=== PATIENT | female | born 1970 | race Caucasian/White ===

== ENCOUNTER → 2016-10-26 | Outpatient (CLI) | payer BC ==
[~2016-10-26] MED LIST: ASCO500T16 PO; CHOL1000 PO; CLR10 PO; FERR325T5 PO; MONT1TAB3 PO; POTA99TA PO; PRT/20 PO; RANI300T2 PO
--- NOTE | 2016-10-26 11:45 | DIAGNOSTIC IMAGING REPORT ---
TWO VIEW CHEST CLINICAL HISTORY: Chronic cough. FINDINGS: PA and lateral chest radiographs are obtained. No prior studies are available for comparison at the time of dictation. The cardiomediastinal silhouette is unremarkable. The lungs and pleural spaces are clear. There is no pneumothorax. The bony thorax appears intact. IMPRESSION: No active disease in the chest. Electronically signed by: Austin White M.D. 10/26/2016 11:44 AM Dictated Date/Time: 10/26/2016 11:44 AM
== END | disposition home or self-care (01) ==
LOC: C.RAD1850 11:31
PROVIDERS: ATTEND Nurse Practitioner Family
DX: R06.02 Shortness of breath (principal); R05 Cough; Z77.22 Contact with and (suspected) exposure to environmental tobacco smoke (acute) (chronic)

== ENCOUNTER 2016-10-27 07:34 | Inpatient (IN) | payer BC ==
[2016-10-27] VITALS (22 sets, daily range): BP systolic 125–156; BP diastolic 77–96; PULSE 71–91; TEMP 36.4–37.1; O2SAT 93–100; Ht 167.6 cm; Wt 97.9 kg
[~2016-10-27] VITALS: Ht 167.6 cm; Wt 97.9 kg
[2016-10-27] MEDS ORDERED: SODIUM CHLORIDE 0.9% 1000ML 1,000 ML IV STA (08:07)
[2016-10-27 08:47] LABS: PARTIAL THROMBOPLASTIN RATIO 0.9; PROTHROMBIN TIME (PATIENT) 10.6 SECONDS (9.0-12.0)
[2016-10-27 08:55] LABS: HEMATOCRIT 18.5 % (37-47); MEAN CELL VOLUME 64.5 fL (80-100); MEAN CORPUSCULAR HEMOGLOBIN 17.1 pg (25-34); MEAN CORPUSCULAR HGB CONC 26.5 g/dl (32-36); MEAN PLATELET VOLUME 9.2 fL (7.4-10.4); PLATELET COUNT 589 K/uL (130-400); RED BLOOD COUNT 2.87 M/uL (4.2-5.4); WHITE BLOOD COUNT 8.68 K/uL (4.8-10.8)
[2016-10-27 09:02] LABS: ALT/SGPT 16 U/L (12-78); BLOOD UREA NITROGEN 19 mg/dl (7-18); BUN/CREATININE RATIO 19.9 (10-20); CALCIUM 8.4 mg/dl (8.5-10.1); CARBON DIOXIDE 22 mmol/L (21-32); CHLORIDE 109 mmol/L (98-107); CREATININE 0.94 mg/dl (0.60-1.20); GLUCOSE 81 mg/dl (70-99); SODIUM 141 mmol/L (136-145)
[2016-10-27 09:04] LABS: URINE APPEARANCE CLEAR (CLEAR); URINE BILIRUBIN NEG (NEG); URINE COLOR YELLOW; URINE NITRITE NEG (NEG); URINE SPECIFIC GRAVITY 1.019 (1.000-1.030); UROBILINOGEN NEG (NEG)
[2016-10-27 09:05] LABS: ANISOCYTOSIS PRESENT; BASO ABS # 0.17 K/uL (0-0.2); COMPLETE YES; EOS % 4.1 %; HYPOCHROMIA PRESENT; IG% 0.1 %; LYMPH % 25.7 %; LYMPH ABS # 2.23 K/uL (1.2-3.4); MICROCYTOSIS PRESENT; MONO % 6.8 %; NEUT % 61.3 %
[2016-10-27 09:05] LABS: MANUAL MICROSCOPIC REQUIRED? NO; REVIEW REQ? NO
[2016-10-27 09:07] LABS: ALKALINE PHOSPHATASE 46 U/L (45-117); AST/SGOT 12 U/L (15-37)
[2016-10-27] MEDS ORDERED: MONT1TAB3 PO ×2 (09:14)
[2016-10-27] MEDS ORDERED: RANI300T2 PO ×2 (09:14)
[2016-10-27] MEDS ORDERED: PRT/20 PO ×2 (09:14)
[2016-10-27] MEDS ORDERED: ASCO500T16 PO ×2 (09:14)
[2016-10-27] MEDS ORDERED: CHOL1000 PO ×2 (09:14)
[2016-10-27] MEDS ORDERED: CLR10 PO ×2 (09:14)
[2016-10-27] MEDS ORDERED: POTA99TA PO ×2 (09:14)
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
[2016-10-27] MEDS ORDERED: MAGNESIUM HYDROXIDE SUSP 30 ML UDC PO PRN (11:15)
[2016-10-27] MEDS ORDERED: ACETAMINOPHEN 325 MG TAB PO PRN (11:15)
[2016-10-27] MEDS ORDERED: POLYETHYLENE (MIRALAX) 17 GM PACK PO PRN (11:15)
[2016-10-27] MEDS ORDERED: ZOLPIDEM TARTRATE 5 MG TAB PO PRN (11:15)
[2016-10-27] MEDS ORDERED: ALUMINUM/MAGNESIUM/SIMETH (MAALOX MAX) 30 ML UDC PO PRN (11:15)
--- NOTE | 2016-10-27 11:16 | DIAGNOSTIC IMAGING REPORT ---
PELVIC ULTRASOUND CLINICAL HISTORY: HEAVY MENSES, ANEMIA COMPARISON STUDY: None. TECHNIQUE: Transabdominal and transvaginal sonography of the pelvis was performed. FINDINGS: The uterus is enlarged and contains multiple hypoechoic masses suggestive of fibroids. The uterus measures 11.2 x 4.7 x 9.6 cm. The endometrium is difficult to visualize on this exam. No normal-appearing endometrium is noted. The endometrium may be thickened. The endometrium may measure 2.8 cm in thickness. Numerous suspected fibroids are noted, the largest of which is a pedunculated fibroid arising from the left aspect of the uterus measuring 6 x 4 x 5.7 cm. A right fundal fibroid measures 5.3 x 2.6 x 5.1 cm and a left uterine body fibroid measures 4 x 3.3 x 3.5 cm. The right ovary was not visualized. There was no free fluid. The left ovary measured approximately 4.4 x 1.8 x 3.7 cm and contained a 4.4 x 1.3 x 3.1 cm cyst. IMPRESSION: 1. Enlarged uterus containing numerous masses suggestive of fibroids, the largest of which is a 6 cm pedunculated fibroid arising from the left uterine fundus. 2. Suboptimal evaluation of the endometrium which is distorted on this exam. Apparent endometrial thickening although a polyp or submucosal fibroid could appear similar. 3. Nonvisualization of the right ovary. 4. 4.4 cm suspected left ovarian cyst. A follow-up pelvic ultrasound in 6 weeks to ensure resolution is recommended although this is likely benign. Electronically signed by: Chuy Vo M.D. 10/27/2016 11:15 AM Dictated Date/Time: 10/27/2016 11:08 AM
[2016-10-27 11:19] LABS: FERRITIN 1.1 ng/ml (8.0-388.0)
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
--- NOTE | 2016-10-27 15:56 | Medical Consult ---
Consultation Date of Consultation: Oct 27, 2016. Attending Physician: Harley Cruz MD Reason for Consultation: Heavy menses, severe anemia with hgb 4.9 History of Present Illness Patient is 45yo who presented to the ER at [facility] as directed by her PCP this morning. Over the past few months, pt had been feeling increasingly fatigued, weak, tired, and short of breath. She underwent CXR and blood work as ordered by PCP and H/H was 4.9/18.5 yesterday. 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 She notes, over the past few years , worsening periods lasting 14-16 days per month. She typically has about 2 weeks of bleeding followed by 2 weeks without, then bleeds again. She describes heavy bleeding, changing a tampon every 1.5-to-2 hours and passes large clots. She is currently menstruating, but flow is not very heavy today. Current period started 10/21/16. No history of abnormal pap, but has not had a pap in more than 8 years. H/o tubal ligation in 2000 or 2001. H/o vaginal delivery, uncomplicated, x 1. No h/ o sexually transmitted infections. 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 Took coumadin x 1 year, is not currently on any anticoagulant. Past Medical/Surgical History Medical Problems: (1) GERD (gastroesophageal reflux disease) Status: Chronic (2) Severe anemia Status: Acute Social History Smoking Status: Never Smoker Alcohol Use: occasionally Drug Use: none Marital Status: in relationship (Has court date for finalization of divorce on Sunday. Boyfriend is at bedside.) Occupation Status: employed Allergies Coded Allergies: Morphine (Unverified Allergy, Severe, HEART RACES, 10/27/16) Penicillins (Unverified Allergy, Severe, "PUFFY EYES", 10/27/16) Current Inpatient Medications Current Inpatient Medications Medications (Trade) Dose Ordered Sig/Freeman Route Start Time Stop Time Status Last Admin Dose Admin Cholecalciferol (Vitamin D Tab) 1,000 inter.unit DAILY PO 10/28/16 09:00 11/27/16 08:59 Montelukast Sodium (Singulair Tab) 10 mg QAM PO 10/28/16 09:00 8/28/17 08:59 Pantoprazole Sodium (Protonix Tab) 40 mg QAM PO 10/28/16 09:00 11/27/16 08:59 Ranitidine HCl (zANTac TAB) 300 mg HS PO 10/27/16 21:00 11/26/16 20:59 Acetaminophen (Tylenol Tab) 650 mg Q4H PRN PO 10/27/16 11:15 11/26/16 11:14 Al Hydrox/Mg Hydrox/Simethicone (Maalox Max Susp) 15 ml Q4H PRN PO 10/27/16 11:15 11/26/16 11:14 Magnesium Hydroxide (Milk Of Magnesia Susp) 30 ml Q12H PRN PO 10/27/16 11:15 11/26/16 11:14 Zolpidem Tartrate (Ambien Tab) 5 mg HSZ PRN PO 10/27/16 11:15 11/26/16 11:14 Polyethylene (Miralax Powder Packet) 17 gm DAILY PRN PO 10/27/16 11:15 11/26/16 11:14 Review of Systems Constitutional: + weakness, + fatigue Eyes: No problem reported ENT: No problem reported Respiratory: No problem reported Cardiovascular: No problem reported Abdomen: No pain, No nausea, No vomiting, No diarrhea, No constipation, No GI bleeding Musculoskeletal: No problem reported Genitourinary - Female: + menorrhagia, + metrorrhagia, + vaginal bleeding Neurologic: No problem reported Psychiatric: No problem reported Endocrine: No problem reported Hematologic / Lymphatic: No problem reported Integumentary: No problem reported Allergic / Immunologic: No problem reported Physical Exam Date Time Temp Pulse Resp B/P (MAP) Pulse Ox O2 Delivery O2 Flow Rate FiO2 10/27/16 13:41 37.0 75 17 134/77 98 10/27/16 13:30 37.0 83 16 137/95 100 10/27/16 13:30 37.0 79 16 138/77 99 10/27/16 13:15 37.0 81 18 140/82 99 10/27/16 13:15 37.0 79 16 138/77 99 10/27/16 13:10 10/27/16 13:00 37.0 71 17 139/86 100 10/27/16 12:45 37.0 75 20 145/84 100 10/27/16 12:23 68 10/27/16 12:15 37.0 76 20 146/89 100 10/27/16 12:15 37.0 76 20 156/91 100 10/27/16 12:00 37.1 86 18 146/89 95 10/27/16 11:46 37.0 82 16 154/85 99 10/27/16 11:13 97 Room Air 10/27/16 11:09 84 16 151/78 97 Room Air 10/27/16 08:45 84 161/79 83 157/87 89 149/82 10/27/16 08:44 86 10/27/16 08:44 86 17 159/83 99 Room Air 10/27/16 08:44 99 Room Air 10/27/16 07:36 37.5 108 18 166/72 100 Room Air General Appearance: no apparent distress Head: normocephalic ENT: hearing grossly normal Neck: supple Respiratory/Chest: normal breath sounds Cardiovascular: regular rate, rhythm Abdomen/GI: non tender, soft, + pertinent finding (16-week uterus, firm, mobile ) Genitourinary - Female: external genitalia normal, normal cervix, + pertinent finding (16-week size uterus, cervix smooth but displaced slightly to left, can feel mass in posterior fornyx and right parametrial area. Scant blood on speculum exam. Tampon that had just been removed prior to exam was dry.) Back: normal inspection Extremities/Musculoskelatal: normal inspection Neurologic/Psych: alert, normal mood/affect, oriented x 3 Skin: + pallor Laboratory Results Last 24 Hours Test 10/27/16 08:24 10/27/16 08:50 10/27/16 15:28 White Blood Count 8.68 K/uL Red Blood Count 2.87 M/uL Hemoglobin 4.9 g/dL Hematocrit 18.5 % Mean Corpuscular Volume 64.5 fL Mean Corpuscular Hemoglobin 17.1 pg Mean Corpuscular Hemoglobin Concent 26.5 g/dl Platelet Count 589 K/uL Mean Platelet Volume 9.2 fL Neutrophils (%) (Auto) 61.3 % Lymphocytes (%) (Auto) 25.7 % Monocytes (%) (Auto) 6.8 % Eosinophils (%) (Auto) 4.1 % Basophils (%) (Auto) 2.0 % Neutrophils # (Auto) 5.32 K/uL Lymphocytes # (Auto) 2.23 K/uL Monocytes # (Auto) 0.59 K/uL Eosinophils # (Auto) 0.36 K/uL Basophils # (Auto) 0.17 K/uL RDW Standard Deviation 49.7 fL RDW Coefficient of Variation 21.2 % Immature Granulocyte % (Auto) 0.1 % Immature Granulocyte # (Auto) 0.01 K/uL Hypochromasia PRESENT Anisocytosis PRESENT Microcytosis PRESENT Absolute Reticulocyte Count 0.05 10^6/uL Percent Reticulocyte Count 1.9 % Prothrombin Time 10.6 SECONDS Prothromb Time International Ratio 1.0 Activated Partial Thromboplast Time 22.2 SECONDS Partial Thromboplastin Ratio 0.9 Sodium Level 141 mmol/L Potassium Level 4.0 mmol/L Chloride Level 109 mmol/L Carbon Dioxide Level 22 mmol/L Anion Gap 10.0 mmol/L Blood Urea Nitrogen 19 mg/dl Creatinine 0.94 mg/dl Est Creatinine Clear Calc Drug Dose 88.7 ml/min Estimated GFR () 84.3 Estimated GFR (Non- 72.8 BUN/Creatinine Ratio 19.9 Random Glucose 81 mg/dl Calcium Level 8.4 mg/dl Iron Level 12 mcg/dl Total Iron Binding Capacity 499 mcg/dl Ferritin 1.1 ng/ml Total Bilirubin 0.5 mg/dl Direct Bilirubin 0.1 mg/dl Aspartate Amino Transf (AST/SGOT) 12 U/L Alanine Aminotransferase (ALT/SGPT) 16 U/L Alkaline Phosphatase 46 U/L Troponin I < 0.015 ng/ml Total Protein 7.2 gm/dl Albumin 3.7 gm/dl Lipase 129 U/L Urine Color YELLOW Urine Appearance CLEAR Urine pH 5.0 Urine Specific [place] 1.019 Urine Protein NEG Urine Glucose (UA) NEG Urine Ketones NEG Urine Occult Blood NEG Urine Nitrite NEG Urine Bilirubin NEG Urine Urobilinogen NEG Urine Leukocyte Esterase SMALL Urine WBC (Auto) 1-5 /hpf Urine RBC (Auto) 0-4 /hpf Urine Hyaline Casts (Auto) 1-5 /lpf Urine Epithelial Cells (Auto) 10-20 /lpf Urine Bacteria (Auto) NEG Urine Test NEG Assessment & Plan 45yo with heavy prolonged menses and severe anemia Ultrasound shows multiple uterine fibroids and an endometrial thickness of 2.8cm. Suspect fibroids are contributing to patient's heavy menses, however, since lining appears to be thickened, will need to perform outpatient endometrial biopsy to rule out malignancy. Recommend stabilization with blood products, and upon discharge, patient will need to follow up as an outpatient with [facility] [place] within the next 1-2 weeks. At that time, will plan to perform endometrial biopsy and will base further plans upon results. Since patient is not experiencing active heavy bleeding, do not recommend hormonal treatment at this time - and if treatment does become necessary, would use aygestin or megace and NOT use any estrogen-containing medications due to her history of blood clot. I discussed this plan with patient, she is agreeable. Please call with further questions.
[2016-10-27 16:05] LABS: HEMATOCRIT 21.5 % (37-47)
[2016-10-27 18:49] LABS: HEMATOCRIT 24.9 % (37-47)
[2016-10-27] MEDS ORDERED: RANITIDINE HCL 150 MG TAB PO SCH (21:00)
[2016-10-28 00:37] VITALS: BP 143/89; PULSE 89; TEMP 36.9; O2SAT 97
[2016-10-28 01:35] VITALS: BP 149/93; PULSE 78; TEMP 36.8; O2SAT 97
[2016-10-28 02:42] VITALS: BP 155/92; PULSE 79; TEMP 36.7; O2SAT 96
[2016-10-28 03:34] LABS: BUN/CREATININE RATIO 20.8 (10-20); CALCIUM 8.5 mg/dl (8.5-10.1); CREATININE 0.75 mg/dl (0.60-1.20); MAGNESIUM 2.1 mg/dl (1.8-2.4)
[2016-10-28 03:37] LABS: ALB/GLOB RATIO 1.1 (0.9-2)
[2016-10-28 03:42] LABS: HEMATOCRIT 28.5 % (37-47); MEAN CELL VOLUME 72.3 fL (80-100); MEAN CORPUSCULAR HEMOGLOBIN 21.6 pg (25-34); MEAN CORPUSCULAR HGB CONC 29.8 g/dl (32-36); MEAN PLATELET VOLUME 9.5 fL (7.4-10.4); PLATELET COUNT 574 K/uL (130-400); RED BLOOD COUNT 3.94 M/uL (4.2-5.4); WHITE BLOOD COUNT 10.59 K/uL (4.8-10.8)
[2016-10-28 03:47] LABS: ANISOCYTOSIS PRESENT; BASO ABS # 0.11 K/uL (0-0.2); COMPLETE YES; EOS % 2.7 %; IG% 0.2 %; LYMPH % 33.9 %; LYMPH ABS # 3.59 K/uL (1.2-3.4); MONO % 10.3 %; NEUT % 51.9 %; OVALOCYTES 1+; POLYCHROMASIA 1+
[2016-10-28 04:02] VITALS: BP 142/78; PULSE 82; TEMP 36.7; O2SAT 95
[2016-10-28 07:01] VITALS: BP 129/93; PULSE 76; TEMP 37; O2SAT 99
[2016-10-28] MEDS ORDERED: MONTELUKAST SOD 10 MG TAB PO SCH (09:00)
[2016-10-28] MEDS ORDERED: PANTOprazole SOD 40 MG TAB PO SCH (09:00)
[2016-10-28] MEDS ORDERED: IRON SUCROSE INJ 100 MG in SODIUM CHLORIDE 0.9% 100ML 100 ML IV SCH (09:00)
[2016-10-28] MEDS ORDERED: CHOLECALCIFEROL 1000 INTER.UNIT TAB PO SCH (09:00)
[2016-10-28 10:13] LABS: HEMATOCRIT 28.1 % (37-47)
[2016-10-28] MEDS ORDERED: FERR325T5 PO ×2 (10:31)
--- NOTE | 2016-10-28 10:34 | Discharge Instructions ---
Discharge Instructions Date of Service Oct 28, 2016. Admission Reason for Admission: Severe Anemia Discharge Discharge Diagnosis / Problem: Acute blood loss anemia Discharge Goals Goal(s): Decrease discomfort, Improve function, Increase independence, Improve disease control, Learn about illness, Diagnostic testing, Therapeutic intervention, Prevent Disease Progression Activity Recommendations Activity Limitations: resume your previous activity Exercise/Sports Limitations: none Driving or Machine Use: no limitations . Instructions / Follow-Up Instructions / Follow-Up Patient to be discharged home Anemia likely from prolonged menses Will need to follow up with RN TRANSITIONAL in 1-2 weeks Iron levels also low, started on ferrous sulfate 325 mg, please take 1 tablet a day Please note can cause constipation and dark stools Please follow up with Rosemarie Zimmerman in 1-2 weeks Current Hospital Diet Patient's current hospital diet: Regular Diet Discharge Diet Recommended Diet: Regular Diet Pending Studies Studies pending at discharge: no Medical Emergencies . Who to Call and When: Medical Emergencies: If at any time you feel your situation is an emergency, please call 911 immediately. . Non-Emergent Contact Non-Emergency issues call your: Primary Care Provider Call Non-Emergent contact if: you have a fever, your pain is worsening . . "Provider Documentation" section prepared by Oscar Castañeda. . VTE Core Measure Inpt VTE Proph given/why not?: Contraindicated
[2016-10-28 10:38] VITALS: BP 129/93; PULSE 76; TEMP 37; O2SAT 99
--- NOTE | 2016-10-28 14:06 | Discharge Summary ---
Discharge Summary Date of Service Oct 28, 2016. 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 New Medications: Ferrous Sulfate (Ferrous Sulfate) 325 Mg Tab 325 MG PO DAILY, #30 TAB Continued Medications: Ascorbic Acid (Ascorbic Acid) 500 Mg Tab 500 MG PO DAILY Cholecalciferol (Vitamin D3) 1,000 Unit Tab 1 TAB PO DAILY Loratadine (Claritin) 10 Mg Tab 10 MG PO QAM Montelukast Sodium (Singulair) 10 Mg Tab 10 MG PO QAM Pantoprazole (Protonix) 20 Mg Tab 20 MG PO QAM Potassium (Potassium) 99 Mg Tab 1 TAB PO DAILY Ranitidine (Zantac) 300 Mg Tab 300 MG PO HS, TAB Discharge Exam Review of Systems: Constitutional: No fever, No chills, No sweats, No weight loss, No weakness Eyes: No worsening of vision, No eye pain, No redness, No discharge Respiratory: No cough, No sputum, No wheezing, No shortness of breath, No dyspnea on exertion Cardiovascular: No chest pain, No orthopnea, No PND, No edema, No claudication Abdomen: No pain, No nausea, No vomiting, No diarrhea Musculoskeletal: No joint pain, No muscle pain, No swelling, No calf pain Genitourinary - Female: No dysuria, No urinary frequency, No urinary urgency , No urinary incontinence, No dysmenorrhea, No menorrhagia, No metrorrhagia, No vaginal bleeding Neurologic: No memory loss, No paralysis, No weakness, No numbness/tingling , No vertigo Psychiatric: No depression symptoms, No anhedonism, No anxiety, No insomnia Endocrine: No fatigue, No excessive thirst, No excessive urination Integumentary: No rash, No itch Physical Exam: General Appearance: WD/WN, no apparent distress Eyes: normal inspection, PERRL, EOMI, sclerae normal Neck: supple, no adenopathy, thyroid normal, no JVD Respiratory/Chest: chest non-tender, lungs clear, normal breath sounds, no respiratory distress Cardiovascular: regular rate, rhythm, no edema, no gallop, no JVD Abdomen / GI: normal bowel sounds, non tender, soft, no organomegaly Neurologic/Psychiatric: alert, normal mood/affect, normal reflexes, oriented x 3 Hospital Course ASSESSMENT: Severe symptomatic iron deficiency anemia secondary to below. Chronic blood loss anemia secondary to below. Severe metrorrhagia, most likely secondary to below. Multiple uterine fibroids/left ovarian cyst/thickened endometrium. Gastroesophageal reflux disease/hiatal hernia. Allergic rhinitis. PLAN: Admit patient to telemetry. Hg initially 4.9. Was transfused a total of 4 units PRBCs during admission. Hg 8.2 on discharge. Pt denied any shortness of breath, chest pain or active bleeding. Iron levels were found to be low. Also discharged on ferrous sulfate 325 mg PO daily. Pelvic US did determine endometrial thickening and mult fibroids likely etiology of heavy prolonged menses. Will f/u with OB/ BOILER INSPECTOR for further evaluation. Total Time Spent: Greater than 30 minutes This includes examination of the patient, discharge planning, medication reconciliation, and communication with other providers. Discharge Instructions Please refer to the electronic Patient Visit Report (Discharge Instructions) for additional information. Additional Copies To Rosemarie Zimmerman
== END 2016-10-28 12:40 | disposition home or self-care (01) | DRG 812 ==
LOC: C.EDB 07:36 → C.2T 11:10 → ENRESERV 12:40
PROVIDERS: ADMIT Internal Medicine; ATTEND Hospitalist
DX: D50.0 Iron deficiency anemia secondary to blood loss (chronic) (principal); N93.8 Other specified abnormal uterine and vaginal bleeding; N92.1 Excessive and frequent menstruation with irregular cycle; D25.9 Leiomyoma of uterus, unspecified; K21.9 Gastro-esophageal reflux disease without esophagitis; Z86.711 Personal history of pulmonary embolism

== ENCOUNTER → 2016-11-06 | Outpatient (CLI) | payer BC | END | disposition home or self-care (01) | LOC: C.PAPS 14:35 | PROVIDERS: ATTEND Obstetrics & Gynecology | DX: N92.0 Excessive and frequent menstruation with regular cycle (principal) ==

== ENCOUNTER → 2016-11-06 | Outpatient (CLI) | payer BC | END | disposition home or self-care (01) | LOC: C.PATHSPEC 13:03 | PROVIDERS: ATTEND Obstetrics & Gynecology | DX: N92.0 Excessive and frequent menstruation with regular cycle (principal) ==

== ENCOUNTER 2024-04-29 22:18 | Observation (INO) ==
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
[2024-04-29] MEDS ORDERED: VANCOMYCIN CONSULT ACTIVE PRN (23:38)
[2024-04-29] MEDS: ACETAMINOPHEN 1,000 MG/100 ML VIAL IV STA (23:41)
[2024-04-29 23:45] LABS: Basophils # (auto) 0.01 K/uL (0.00-0.20); Basophils % (auto) 0.1 %; Eosinophils # (auto) 0.03 K/uL (0.00-0.50); Eosinophils % (auto) 0.2 %; Hematocrit (blood only) 41.5 % (37.0-47.0); Hemoglobin 14.1 g/dl (12.0-16.0); Immature Granulocytes # (auto) 0.03 K/uL (0.01-0.20); Immature Granulocytes % (auto) 0.2 %; Lymphocytes # (auto) 3.23 K/uL (1.20-3.40); Lymphocytes % (auto) 24.7 %; Mean Corpuscular Hemoglobin 29.6 pg (25.0-34.0); Monocytes # (auto) 1.12 K/uL (0.11-0.59); Monocytes % (auto) 8.5 %; Neutrophils # (auto) 8.68 K/uL (1.40-6.50); Neutrophils % (auto) 66.3 %; Platelet Count 315 K/uL (130-400); RDW Coefficient of Variation 12.5 % (11.5-14.5); RDW Standard Deviation 40.2 fL (36.4-46.3); Red Blood Count 4.77 M/uL (4.20-5.40)
[2024-04-30 00:02] LABS: Albumin Globulin Ratio 1.5 (0.9-2); Albumin Level 4.5 gm/dl (3.4-5.0); BUN Creatinine Ratio 24.7 (10-20); Bilirubin,Total 0.6 mg/dl (0.2-1.0); Calcium 9.1 mg/dl (8.6-10.3); Creatinine Clr Calc Pharmacy 105.3 ml/min; Potassium 3.5 mmol/L (3.5-5.1); Total Protein 7.5 gm/dl (6.0-8.3)
[2024-04-30] MEDS: cefTRIAXone SODIUM 2,000 MG/50 ML BAG IV STA (00:06)
--- NOTE | 2024-04-30 00:16 | Emergency Department Note ---
ED Visit Note Physician Evaluation Note: Patient was seen in conjunction with the midlevel provider. Please see the midlevel provider note for full details of the patient's visit. I have personally evaluated and examined this patient. Patient presented to the ED with pain in her right middle finger. Patient states she developed pain and swelling earlier in the day. Patient has had difficulty moving the finger secondary to the pain and swelling. Clinically, I do have concern on my exam for flexor tenosynovitis. Patient will be initiated on IV antibiotics and will plan for admission with orthopedic consultation for further evaluation in the morning. Patient was in agreement to this plan, please see physician chemist assistant note for full details of the patient's presentation. I agree with assessment and plan of Jammie Dominguez PA-C. Michael Henry DO .
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
--- NOTE | 2024-04-30 00:38 | XRay Report ---
Exam(s): XR RIGHT FINGER EXAM: XR Right Fingers, 3 Views CLINICAL HISTORY: Reason for exam: swollen. TECHNIQUE: Frontal, lateral and oblique views of the right third digit COMPARISON: No relevant prior studies available. FINDINGS: Bones/joints: No acute fracture. No dislocation. No gross bony destruction is seen. Soft tissues: There is soft tissue swelling.. No radiopaque foreign body. IMPRESSION: Soft tissue swelling. If further evaluation is clinically necessary, consider correlation with MRI. Electronically signed by: Lui Soria MD 04/30/24 00:37 AM
[2024-04-30 00:46] LABS: Magnesium 1.8 mg/dl (1.7-2.4)
[2024-04-30 01:27] LABS: Uric Acid 4.3 mg/dl (2.6-7.2)
[2024-04-30] MEDS: POTASSIUM CHLORIDE CRTAB 20 MEQ TABCR PO STA (01:28)
[2024-04-30] MEDS: KETOROLAC TROMETHAMINE 15 MG/ML VIAL IV ONE (01:28)
[2024-04-30] MEDS: VANCOMYCIN HCL 1,000 MG/270 ML BAG IV ONE (01:31)
[2024-04-30] MEDS ORDERED: ONDANSETRON INJ 2 MG/ML 2 ML VIAL IV PRN (02:39)
[2024-04-30] MEDS ORDERED: VANCOMYCIN CONSULT ACTIVE PRN (02:39)
[2024-04-30] MEDS ORDERED: MELATONIN 3 MG TAB PO PRN (02:39)
[2024-04-30] MEDS ORDERED: oxyCODONE HCL IR 5 MG TAB (IMMEDIATE RELEASE) PO PRN (02:39)
[2024-04-30] MEDS ORDERED: KETOROLAC TROMETHAMINE 15 MG/ML VIAL IM PRN (02:39)
--- NOTE | 2024-04-30 03:20 | Pharmacy Report ---
Pharmacy PK ABX Note - Date of Service April 30, 2024 - Assessment and Plan Assessment 53 year old F receiving ceftriaxone and vancomycin for treatment of cellulitis of the finger. XRay of finger shows soft tissue swelling. Ortho has been consulted for possible flexor tenosynovitis. * + influenza A--currently on oseltamivir * + leukocytosis and afebrile * Blood cultures x 2 obtained 04/29 are pending Day # 1 of antimicrobial therapy. Plan Vancomycin * Loading dose: 1000 mg IV x 1 in ED * Maintenance dose: 1250 mg IV every 12 hours * Regimen is predicted to achieve target AUC/JULIETTE of 400-600 mg/L.hr * Random level will be ordered as clinically necessary. Pharmacy will continue to follow and will adjust dose/frequency as necessary. Thank you. Pharmacy has transitioned to AUC monitoring for vancomycin. AUC/JULIETTE is the preferred PK/PD target and is associated with decreased risk of nephrotoxicity compared to traditional trough targets.
--- OUTSIDE RECORDS SUMMARY | 2024-04-30 03:50 | External Medical Summary | Continuity of Care Document ---
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 Name Role Phone Kristina Troy Primary Care Physician [phone] Encounter [facility] [id number] Date(s): 11/07/23 - 11/07/23 [facility] 1849 [facility] 207 [facility] 1850 [facility] [address] [place] [address] [phone] Encounter Diagnosis Adult general medical exam(Discharge Diagnosis) - 11/07/23 Hiatal hernia with GERD(Discharge Diagnosis) - 11/07/23 Hyperlipidemia(Discharge Diagnosis) - 11/07/23 Hypothyroid(Discharge Diagnosis) - 11/07/23 Prediabetes(Discharge Diagnosis) - 11/07/23 Elevated hemoglobin A1c(Discharge Diagnosis) - 11/07/23 Discharge Disposition: Home or Self Care Attending Physician: CONSUELO Troy, Kristina Branch Allergies, Adverse Reactions, Alerts Substance Criticality Severity Reaction Reaction Severity Status morphine heart races Active penicillin G benzathine pink eye Active shellfish 1 Unable to assess criticality Mild Stomach cramps Active Trees 2 Unable to assess criticality Moderate Hives Eye swelling Active 1exception: shrimp 2Specifically: pine Immunizations Given and Recorded Vaccine Date Status Refusal Reason SARS-CoV-2 (COVID-19) mRNA BNT-162b2 vax 1 02/19/21 Recorded influenza virus vaccine, inactivated 01/03/20 Seferino rded influenza virus vaccine, inactivated 01/23/19 Give n influenza virus vaccine, inactivated 01/22/18 Give n tetanus toxoids-diphtheria, Td (Adult) 07/27/08 Re corded 1Result Comment: [facility] levothyroxine 25 mcg (0.025 mg) oral tablet Start: 10/22/23 11:00:00 AM EDT, 1 tab, PO, Daily, Disp# 30 tab, Refills: 5, Pharmacy: [facility] [id number] Start Date: 10/22/23 Status: Ordered loratadine 10 mg oral tablet Start: 05/03/23 9:26:00 PM EST, 1 tab, PO, Daily, Disp# 90 tab, Refills: 3, Pharmacy: [facility] [id number] Start Date: 05/03/23 Status: Ordered Mucinex Max Strength 1200 mg oral tablet, extended release Start: 07/10/18 6:21:00 PM EDT, 1 tab, PO, q12h, Disp# 10 tab, other Start Date: 07/10/18 Stop Date: 07/15/18 Status: Ordered pantoprazole 40 mg oral delayed release tablet Start: 06/24/23 11:17:00 PM EDT, 1 tab, PO, Daily, Disp# 30 tab, Refills: 5, Pharmacy: [facility] Start Date: 06/24/23 Status: Ordered rosuvastatin 5 mg oral tablet Start: 05/11/23 4:35:00 PM EST, 1 tab, PO, qhs, Disp# 90 tab, Refills: 5, Pharmacy: [facility] Start Date: 05/11/23 Status: Ordered Shingrix intramuscular injection Start: 05/02/22 2:27:00 PM EST, 0.5 mL, IM, ONCE, Disp# 1 each, Refills: 1, Pharmacy: [facility]/pharmacy #[id number] Start Date: 05/02/22 Status: Ordered Vitamin C Start: 12/26/16 2:08:00 PM EDT, 500 mg =, PO, Daily Start Date: 12/26/16 Status: Ordered Vitamin D3 5000 intl units oral tablet Start: 10/26/16 9:36:00 AM EDT, 2 tabs, PO, qAM Start Date: 10/26/16 Status: Ordered Mental Status 11/07/23 Barriers to Learning one year None evide nt Mandatory Health Literacy Documentation Yes Health Literacy Communication Barriers N ever Primary Language Indian Problem List Condition Confirmation Course Effective Dates Status H ealth Status Informant Allergy to environmental factors Confirmed Active Hiatal hernia with GERD Confirmed Active History of uterine fibroid Confirmed Active Hyperlipidemia Confirmed Active Hypothyroid Confirmed Active Lower back pain Confirmed Active Exposure to secondhand smoke Confirmed Active Diagnosis Diagnosis Type Effective Dates Health Status Clinical Service Informant Hiatal hernia with GERD Discharge Diagnosis 11/07/23 Non-Specified Hyperlipidemia Discharge Diagnosis 11/07/23 Non-Specified Hypothyroid Discharge Diagnosis 11/07/23 Non-Specified Adult general medical exam Discharge Diagnosis 11/07/23 Non-Specified Prediabetes Discharge Diagnosis 11/07/23 Non-Specified Elevated hemoglobin A1c Discharge Diagnosis 11/07/23 Non-Specified Procedures Procedure Date Related Diagnosis Body Site Status Mammogram 1 06/20/23 Completed Upper GI (gastrointestinal) endoscopy 2 06/06/22 Completed Laparoscopic incisional renetta ia repair with mesh 3 12/18/19 Completed US abdominal scan 4 11/20/19 Compl eted Mammogram 5 02/18/19 Completed Laparoscopic hysterectomy 01/05/17 Completed Papanicolaou smear 6, 7 11/06/16 C ompleted ECG 8 10/27/16 Completed US EXAM PELVIC COMPLETE 9 10/27/16 Completed Chest x-ray 10 10/26/16 Completed Esophagogastroduodenoscopy 11 05/19/13 Completed Right Foot X-ray 12 07/11/12 Compl eted MRI of lumbar spine 13 11/19/09 Co mpleted Plain X-ray lumbar spine normal 14 11/19/09 Completed History of tubal ligation 03/19/03 Completed Tonsillectomy and adenoidectomy 1980 Completed 1Benign findings 2Impression: Normal, no specimens collected. 3Pre-Op Diagnosis: Incisional hernia 4Moderate sized fat and bowel filled periumbilical hernia. 5there is no mammographic evidence of malignancy 6Negative for intraepithelial lesion or malignancy. 7Endometrium is negative for malignancy. 8No acute ischemic change. No ectopy. 91. Enlarged uterus containing numerous masses suggestive of fibroids, the largest of which is a 6cmpedunculated fibroid arising from the left uterine fundus. 2. Suboptimal evaluation of the endometrium whih is distorted on this exam. Apparent endometrial thickening although a polyp or submucosal fibroid could appear similar. 3. Nonvisualization of the right ovary. 4. 4.4cm suspected left ovarian cyst. A follow-up pelvic ultrasound in 6 weeks to ensure resolutionis recommended although this is likely benign. 10No active disease in the chest. 11Non-erosive gastritis found in the antrum. Two biopsies taken. A hiatus hernia found. 12Angulated nondisplaced fracture of the fifth proximal phalanx. 131. Broad-based disc bulge L4-L5 with annular tear. There are right and left foraminal herniations present with right greater than left mild foraminal narrowing. No central stenosis. 2. Left paracentral and foraminal herniation with annular tear L3-L4, mild left foraminal narrowing. 3. Left paracentral and foraminal disc bulge without stenosis L2-L3. 4. Mild facet joint degenerative change L4-L5 and L5-S1 141. Minimal diffuse lumbar degeneratove endplate osteophyte formation. 2. Otherwise, unremarkable lumbar spine radiographs. Results Laboratory List Name Date Comprehensive Metabolic Panel. (Comprehe nsive Metabolic Panel-[facility]) 11/07/23 Hemoglobin A1c w/eAG. (Hemoglobin A1c w/ eAG-[facility]) 11/07/23 Most recent to oldest [Reference Range]: 1 Bilirubin, Total (QST) [0.2-1.2 mg/dL] 0 .7 mg/dL 1 (11/07/23 8:36 AM) BUN[facility] [7-25 mg/dL] 19 mg/dL 2 (11/07/23 8:36 AM) Creatinine-[facility] [0.50-1.03 mg/dL] 0.67 mg/dL 3 (11/07/23 8:36 AM) BUN/Creat Ratio-[facility] [6-22 (calc)] SEE NOTE: (calc) 4 (11/07/23 8:36 AM) Na[facility] [135-146 mmol/L] 141 mmol/L 5 (11/07/23 8:36 AM) K[facility] [3.5-5.3 mmol/L] 4.2 mmol/L 6 (11/07/23 8:36 AM) Cl[facility] [98-110 mmol/L] 104 mmol/L 7 (11/07/23 8:36 AM) CO2[facility] [20-32 mmol/L] 28 mmol/L 8 (11/07/23 8:36 AM) Ca[facility] [8.6-10.4 mg/dL] 9.9 mg/dL 9 (11/07/23 8:36 AM) Globulin[facility] [1.9-3.7 g/dL (calc)] 2.5 g/dL (calc) 10 (11/07/23 8:36 AM) A/G Ratio-[facility] [1.0-2.5 (calc)] 1.8 (ca lc) 11 (11/07/23 8:36 AM) Alkaline Phosphatase (ALP) [37-153 U/L] 72 U/L 12 (11/07/23 8:36 AM) Albumin, Serum [3.6-5.1 g/dL] 4.5 g/dL 1 3 (11/07/23 8:36 AM) eAG (mg/dL) 126 mg/dL 14 (11/07/23 8:36 AM) eAG (mmol/L) 7.0 mmol/L 15 (11/07/23 8:36 AM) ALT [6-29 U/L] 22 U/L 16 (11/07/23 8:36 AM) HbA1c [<5.7 % of total Hgb] 6.0 % of tot al Hgb 17 *HI* (11/07/23 8:36 AM) eGFR-QST [> OR = 60 mL/min/1.73m2] 104 m L/min/1.73m2 18 (11/07/23 8:36 AM) AST [10-35 U/L] 20 U/L 19 (11/07/23 8:36 AM) Glucose-[facility] [65-99 mg/dL] 115 mg/dL 20 *HI* (11/07/23 8:36 AM) Total Protein-QST [6.1-8.1 g/dL] 7.0 g/d L 21 (11/07/23 8:36 AM) 1Result Comment: Specimen Received d/t: 11/07/2023 23:34:00 Lab test performed by: [facility] [place] [address] Paresh Veronica MD 2Result Comment: Specimen Received d/t: 11/07/2023 23:34:00 Lab test performed by: [facility] [place] [address] Paresh Veronica MD 3Result Comment: Specimen Received d/t: 11/07/2023 23:34:00 Lab test performed by: [facility] [place] [address]Magdalena Veronica MD 4Result Comment: Not Reported: BUN and Creatinine are within reference range. Specimen Received d/t: 11/07/2023 23:34:00 Lab test performed by: [employer] [address] [place] [address]Magdalena Veronica MD 5Result Comment: Specimen Received d/t: 11/07/2023 23:34:00 Lab test performed by: [facility] [address] [place] [address]Magdalena Veronica MD 6Result Comment: Specimen Received d/t: 11/07/2023 23:34:00 Lab test performed by: [facility] [address] [place] [phone] Veronica MD 7Result Comment: Specimen Received d/t: 11/07/2023 23:34:00 Lab test performed by: [facility] [address] [place] [phone] Veronica MD 8Result Comment: Specimen Received d/t: 11/07/2023 23:34:00 Lab test performed by: [facility] [address] [place] [address] Dara Veronica MD 9Result Comment: Specimen Received d/t: 11/07/2023 23:34:00 Lab test performed by: [facility] [address] [place] [phone] Veronica MD 10Result Comment: Specimen Received d/t: 11/07/2023 23:34:00 Lab test performed by: [facility] [address] [place] [address] Dara Veronica MD 11Result Comment: Specimen Received d/t: 11/07/2023 23:34:00 Lab test performed by: [facility] [address] [place] [address] Dara Veronica MD 12Result Comment: Specimen Received d/t: 11/07/2023 23:34:00 Lab test performed by: [facility] [address] [place] [address] Paresh Veronica MD 13Result Comment: Specimen Received d/t: 11/07/2023 23:34:00 Lab test performed by: [employer] [facility] [employer] [address] Paresh Veronica MD 14Result Comment: Specimen Received d/t: 11/07/2023 23:34:00 Lab test performed by: [facility] [address] [address] Paresh Veronica MD 15Result Comment: This test was performed on the Cindy kale c503 platform. Effective 03/19/23, a change in test platforms from the Palmer Drier Feeder to the Cindy kale c503 may have shifted HbA1c results compared to historical results. Based on laboratory validation testing conducted at [facility], the Cindy platform relative to the Palmer platform had an average increase in HbA1c value of < or = 0.3%. This difference is within accepted variability established by the National Glycohemoglobin Standardization Program. Note that not all individuals will have had a shift in their results and direct comparisons between historical and current results for testing conducted on different platforms is not recommended. Specimen Received d/t: 11/07/2023 23:34:00 Lab test performed by: [facility] [employer] [address] Paresh Veronica MD 16Result Comment: Specimen Received d/t: 11/07/2023 23:34:00 Lab test performed by: [facility] [employer] [address] Paresh Veronica MD 17Result Comment: For someone without known diabetes, a hemoglobin A1c value between 5.7% and 6.4% is consistent with prediabetes and should be confirmed with a follow-up test. For someone with known diabetes, a value <7% indicates that their diabetes is well controlled. A1c targets should be individualized based on duration of diabetes, age, comorbid conditions, and other considerations. This assay result is consistent with an increased risk of diabetes. Currently, no consensus exists regarding use of hemoglobin A1c for diagnosis of diabetes for children. Specimen Received d/t: 11/07/2023 23:34:00 Lab test performed by: [facility] [address] [place] [address] Paresh Veronica MD 18Result Comment: Specimen Received d/t: 11/07/2023 23:34:00 Lab test performed by: [facility] [employer] [facility] [employer] [address] Paresh Veronica MD 19Result Comment: Specimen Received d/t: 11/07/2023 23:34:00 Lab test performed by: [facility] [employer] [address] Paresh Veronica MD 20Result Comment: Fasting reference interval For someone without known diabetes, a glucose value between 100 and 125 mg/dL is consistent with prediabetes and should be confirmed with a follow-up test. Specimen Received d/t: 11/07/2023 23:34:00 Lab test performed by: [facility] [employer] [address] Paresh Veronica MD 21Result Comment: Specimen Received d/t: 11/07/2023 23:34:00 Lab test performed by: [facility] [employer] [address] Paresh Veronica MD Vital Signs Most recent to oldest [Reference Range]: 1 Height 166.3 cm (11/07/23 8:07 AM) Patient Weight 121.8 kg (11/07/23 8:07 AM) Body Mass Index 44.04 kg/m2 (11/07/23 8:07 AM) Temperature [36.5-37.9 DegC] 36.8 DegC (11/07/23 8:07 AM) Heart Rate 97 bpm (11/07/23 8:07 AM) Respiratory Rate 18 br/min (11/07/23 8:07 AM) Blood Pressure 120/94mmHg (11/07/23 8:07 AM) Cuff Pulse Pressure 26 mmHg (11/07/23 8:07 AM) Social History Social History Type Response Smoking Status Never smoked cigaret marlen Sex Female Sex Representation Female (finding) Patient Care team information Care Team Personnel Name: CONSUELO Troy, Kristina Branch Position: Physician Asst Exmpt - Family Med Member Role: Primary Care Provider Address: [address] [place] [address] Care Team Related Persons Name: ELISEO CHO Name: SOFIA DALY
--- OUTSIDE RECORDS SUMMARY | 2024-04-30 03:50 | External Medical Summary ---
Author Name Unknown Address Unknown Organization : Laboratory Report Ordering Provider Test Date Status Woodrow Acevedo 11/07/2023 08:47:00 Final Observation Date Value Abnormality Reference (Units ) Status Hemoglobin A1c/Hemoglobin.total in Blood 11/08/2023 04:03:00 6.0 Above high normal <5.7 (% of total Hgb) Final For someone without known di abetes, a hemoglobin
A1c value between 5.7% and [...] d/t: 11/07/2023 23:34:00

Lab test performed by:
[employer], [employer]
[address]
[place] [address]
Paresh Veronica MD eAG (mmol/L) 11/08/2023 04:03:00 7.0 (mmol/L ) Final
This test was performed on the Cindy kale c503 platform.
Effective 03/19/23, a change in test platforms from the
Palmer Yarn Rewinder to the Cindy kale c503 may have shifted
HbA1c results compared to historical results.
Based on laboratory validation testing conducted at
[facility], the Cindy platform relative to the Palmer
[...] d/t: 11/07/2023 23:34:00

Lab test performed by:
[employer], [facility]
[address] [place] [address]
Paresh Veronica MD eAG (mg/dL) 11/08/2023 04:03:00 126 (mg/dL) Final
Specimen Received d/t: 11/07/2023 23:34:00

Lab test performed by:
[employer], [facility]
[address]
[place] [address]
Paresh Veronica MD Performing Location
--- OUTSIDE RECORDS SUMMARY | 2024-04-30 03:50 | External Medical Summary ---
Author Name Unknown Address Unknown Organization : Laboratory Report Ordering Provider Test Date Status Woodrow Acevedo 11/07/2023 08:47:00 Final Observation Date Value Abnormality Reference (Units ) Status Bilirubin.total [Mass/volume] in Serum or Plasma 11/08/2023 04:03:00 0.7 0.2-1.2 (mg/dL) Final
Specimen Received d/t: 11/07/2023 23:34:00

Lab test performed by:
[employer], [facility]
[address]
[place] [address]
Paresh Veronica MD Ca[facility] 11/08/2023 04:03:00 9.9 8.6-10.4 ( mg/dL) Final
Specimen Received d/t: 11/07/2023 23:34:00

Lab test performed by:
[employer], [facility]
[address]
[place] [address]
Paresh Veronica MD Urea nitrogen [Mass/volume] in Serum or Plasma 11/08/2023 04:03:00 19 7-25 (mg/dL) Final
Specimen Received d/t: 11/07/2023 23:34:00

Lab test performed by:
[employer], [facility]
[address]
[place] [address]
Paresh Veronica MD Albumin [Mass/volume] in Ser um or Plasma 11/08/2023 04:03:00 4.5 3.6-5.1 (g/dL) Final
Specimen Received d/t: 11/07/2023 23:34:00

Lab test performed by:
[facility], [facility]
[address] [place] [address]
Paresh Veronica MD Potassium [Moles/volume] in Serum or Plasma 11/08/2023 04:03:00 4.2 3.5-5.3 (mmol/L) Kiana l
Specimen Received d/t: 11/07/2023 23:34:00

Lab test performed by:
[facility], [facility]
[address] [place] [address]
Paresh Veronica MD Aspartate aminotransferase [ Enzymatic activity/volume] in Serum or Plasma 11/08/2023 04:03:00 20 10-35 (U/L) Final
Specimen Received d/t: 11/07/2023 23:34:00

Lab test performed by:
[facility], [facility]
[address] [place] [address]
Paresh Veronica MD eGFR 11/08/2023 04:03:00 104 > OR = 60 (mL/min/1.73m2) Final
Specimen Received d/t: 11/07/2023 23:34:00

Lab test performed by:
[facility] [place], [facility]
[address] [place] [address]
Paresh Veronica MD Carbon dioxide, total [Moles /volume] in Serum or Plasma 11/08/2023 04:03:00 28 20-32 (mmol/L) Fin al
Specimen Received d/t: 11/07/2023 23:34:00

Lab test performed by:
[facility], [facility]
[address] [place] [address]
Paresh Veronica MD Albumin/Globulin [Mass Ratio ] in Serum or Plasma 11/08/2023 04:03:00 1.8 1.0-2.5 ((calc)) F inal
Specimen Received d/t: 11/07/2023 23:34:00

Lab test performed by:
[facility], [facility]
[address] [place] [address]
Paresh Veronica MD Glucose [Mass/volume] in Serum or Plasma 11/08/2023 04:03:00 115 Above high normal 65-99 (mg/dL) Final
Fasting reference inte rval

For someone without known diabetes, a glucose value
between 100 and 125 mg/dL is consistent with
prediabetes and should be confirmed with a
follow-up test.

Specimen Received d/t: 11/07/2023 23:34:00

Lab test performed by:
[facility], [facility]
[address] [place]
[place] [address]
Paresh Veronica MD Sodium [Moles/volume] in Ser um or Plasma 11/08/2023 04:03:00 141 135-146 (mmol/L) Kiana l
Specimen Received d/t: 11/07/2023 23:34:00

Lab test performed by:
[facility], [facility]
[address] [place] [address]
Paresh Veronica MD Protein [Mass/volume] in Ser um or Plasma 11/08/2023 04:03:00 7.0 6.1-8.1 (g/dL) Final
Specimen Received d/t: 11/07/2023 23:34:00

Lab test performed by:
[facility], [facility]
[address] [place] [address]
Paresh Veronica MD Alkaline phosphatase [Enzyma tic activity/volume] in Serum or Plasma 11/08/2023 04:03:00 72 37-153 (U/L) Final
Specimen Received d/t: 11/07/2023 23:34:00

Lab test performed by:
[facility], [facility]
[address] [place] [address]
Paresh Veronica MD Creatinine [Mass/volume] in Serum or Plasma 11/08/2023 04:03:00 0.67 0.50-1.03 (mg/dL) Fin al
Specimen Received d/t: 11/07/2023 23:34:00

Lab test performed by:
[facility], [facility]
[address] [place] [address]
Paresh Veronica MD Chloride [Moles/volume] in S jaelyn or Plasma 11/08/2023 04:03:00 104 98-110 (mmol/L) Final
Specimen Received d/t: 11/07/2023 23:34:00

Lab test performed by:
[facility], [facility]
[address] [place] [place] [address]
Paresh Veronica MD Alanine aminotransferase [En zymatic activity/volume] in Serum or Plasma 11/08/2023 04:03:00 22 6-29 (U/L) Final
Specimen Received d/t: 11/07/2023 23:34:00

Lab test performed by:
[facility] [place], [facility]
[address]
[place] [address]
Paresh Veronica MD Gl[facility] 11/08/2023 04:03:00 2.5 1.9-3 .7 (g/dL (calc)) Final
Specimen Received d/t: 11/07/2023 23:34:00

Lab test performed by:
[facility] [place], [facility]
[address] [place] [address]
Paresh Veronica MD Urea nitrogen/Creatinine [Ma ss Ratio] in Serum or Plasma 11/08/2023 04:03:00 SEE NOTE: 6-22 ((c alc)) Final Not Reported: BUN and Creati nine are within
reference range.

Specimen Received d/t: 11/07/2023 23:34:00

Lab test performed by:
[facility] [place], [facility]
[address]
[place] [address]
Paresh Veronica MD Performing Location
[2024-04-30] MEDS: LEVOTHYROXINE SODIUM 25 MCG TABLET PO SCH (05:29)
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
[2024-04-30] MEDS: BENZONATATE 100 MG CAPSULE PO SCH (08:19)
[2024-04-30] MEDS: LORATADINE 10 MG TAB PO SCH (08:19)
[2024-04-30] MEDS: OSELTAMIVIR PHOSPHATE 75 MG CAP PO SCH (08:19)
[2024-04-30] MEDS: PANTOprazole 40 MG TAB PO SCH (08:20)
[2024-04-30] MEDS: predniSONE 20 MG TAB PO SCH (08:20)
[2024-04-30] MEDS: ROSUVASTATIN CALCIUM 5 MG TAB PO SCH (08:20)
[2024-04-30] MEDS: VANCOMYCIN HCL 1,250 MG in SODIUM CHLORIDE 0.9% 250 ML IV SCH (08:20)
[2024-04-30 09:30] LABS: C Reactive Protein 3.75 mg/dl (0-0.5); Creatinine Clr Calc Pharmacy 131.6 ml/min
--- NOTE | 2024-04-30 09:41 | Electrocardiogram Report ---
Test Reason : Blood Pressure : */* mmHG Vent. Rate : 72 BPM Atrial Rate : 72 BPM P-R Int : 170 ms QRS Dur : 86 ms QT Int : 402 ms P-R-T Axes : 46 32 33 degrees QTcB Int : 440 ms Normal sinus rhythm Normal ECG When compared with ECG of 27-Oct-2016 08:18, No significant change was found Confirmed by Shaggy Buckley ([id number]) on 04/30/2024 9:41:09 AM Referred By: REFERRED SELF Confirmed By: Shaggy Buckley
[2024-04-30] MEDS ORDERED: VANCOMYCIN HCL 1,750 MG in SODIUM CHLORIDE 0.9% 500 ML IV SCH (11:00)
[2024-04-30] MEDS: VANCOMYCIN HCL 1,750 MG in SODIUM CHLORIDE 0.9% 500 ML IV SCH (15:28)
[2024-04-30] MEDS: ACETAMINOPHEN 325 MG TAB PO PRN (21:01)
[2024-04-30] MEDS: cefTRIAXone SODIUM 2,000 MG/50 ML BAG IV SCH (23:12)
[2024-05-01] MEDS: diphenhydrAMINE 50 MG/ML VIAL IV PRN (05:06)
[2024-05-01] MEDS: KETOROLAC TROMETHAMINE 15 MG/ML VIAL IV PRN (05:15)
--- NOTE | 2024-05-01 07:15 | Orthopedic Progress Note ---
Date of Service May 01, 2024 Assessment & Plan (1) Cellulitis of finger of right hand: Plan: 53-year-old female admitted with fusiform swelling of the right long finger consistent with cellulitis. Initially seem to be improving but pretty unchanged over the past 12 hours. No real localized area of pus or purulence to drain. She developed the swelling up in her forearm which suggest may have some type of inflammatory process. There does not seem to be involvement or signs of flexor tenosynovitis. Plan: At this point I would recommend continued IV antibiotic management. I think it is worth trying some type of anti-inflammatory and a more aggressive form as she is got this form lesion which is just some type of inflammatory prosperous. Will put on a regular dose of Toradol in addition to the antibiotics. Will continue to follow her daily. Any orthopedic questions can be directly [phone]. (2) Finger swelling: Admission and Anticipated Discharge Date Admission Date: April 30, 2024 Subjective 53-year-old female admitted with right hand cellulitis. She been on antibiotics. Initially improving but really not much changed overnight. Long fingers mostly involved. No other new complaints. She has had to take some pain medicine. Physical Exam Physical Exam: Physical nation of the right hand reveals fusiform swelling of the long finger. She has pain with any type of movement. Does not seem to radiate down into the palm. Is diffuse swelling. There is no localized area of fluid collection or fluid purulence or pus. She does have a quite swollen area area on her forearm area now. Results & Data Vital Signs (Past 12 Hours) Vital Signs Temp Pulse Resp BP Pulse Ox O2 Del Method 04/30/24 23:38 37.4 C 78 20 170/107 H 95 Room Air
[2024-05-01] MEDS: KETOROLAC 30 MG/ML VIAL IV SCH (07:58)
[2024-05-01 08:04] LABS: Basophils # (auto) 0.02 K/uL (0.00-0.20); Basophils % (auto) 0.2 %; Eosinophils # (auto) 0.01 K/uL (0.00-0.50); Eosinophils % (auto) 0.1 %; Hematocrit (blood only) 36.6 % (37.0-47.0); Hemoglobin 12.4 g/dl (12.0-16.0); Immature Granulocytes # (auto) 0.04 K/uL (0.01-0.20); Immature Granulocytes % (auto) 0.4 %; Lymphocytes # (auto) 3.46 K/uL (1.20-3.40); Lymphocytes % (auto) 31.1 %; Mean Corpuscular Hemoglobin 29.5 pg (25.0-34.0); Mean Corpuscular Hgb Conc 33.9 g/dL (32.0-36.0); Mean Corpuscular Volume 87.1 fL (80.0-100.0); Mean Platelet Volume 10.1 fL (9.4-12.4); Monocytes # (auto) 1.09 K/uL (0.11-0.59); Monocytes % (auto) 9.8 %; Neutrophils # (auto) 6.49 K/uL (1.40-6.50); Neutrophils % (auto) 58.4 %; Platelet Count 267 K/uL (130-400); RDW Coefficient of Variation 12.7 % (11.5-14.5); RDW Standard Deviation 40.2 fL (36.4-46.3); White Blood Count 11.11 K/ul (4.8-10.8)
[2024-05-01 08:11] LABS: BUN Creatinine Ratio 25.9 (10-20); Calcium 8.7 mg/dl (8.6-10.3); Magnesium 1.8 mg/dl (1.7-2.4); Potassium 3.4 mmol/L (3.5-5.1)
--- NOTE | 2024-05-01 12:05 | Hospitalist Progress Note ---
Date of Service May 01, 2024 Assessment & Plan (1) Cellulitis of finger of right hand: (2) Ascending lymphangitis: (3) Leukocytosis: (4) Influenza A: (5) Hypokalemia: Plan Patient is a 53-year-old female with a past medical history of hypothyroidism, GERD, allergies, and hyperlipidemia. She presented due to right middle finger pain, progressive erythema, and swelling x1 day. She is being admitted for IV antibiotics and to have an Ortho consult in the a.m. #cellulitis/ascending lymphangiitis/leukocytosis finger XR showing soft tissue swelling, no gross bony destruction No evidence of drainable abscess no open wound; follow blood cultures Continue empiric antibiotics Tylenol prn, Toradol prn, and Oxycodone 5mg (for pain not relieved by #1 and 2) Will give a dose of lasix to help with the edema No surgical plans per ortho #influenza A patient reported she tested positive with [facility] urgent care on Sunday Finish course of Tamiflu and prednisone 05/02 Tessalon Perles BID Isolation precautions Supportive care #hypokalemia Resolved Chronic stable diagnoses: hypothyroidism - continue levothyroxine Allergies - continue loratadine GERD - continue pantoprazole Insomnia - continue melatonin as needed HLD - continue statin VTE ppx: SCDs - low risk Diet: regular Dispo: med surg Admission and Anticipated Discharge Date Admission Date: April 30, 2024 Subjective patient seen and examined, no much improvement in the swelling Review of Systems Review of Systems: All systems reviewed are negative, apart from the ones contained in the history. Physical Exam Physical Exam: The patient is awake, alert and oriented 3, well developed and well nourished, normocephalic and atraumatic, lying in bed and in no acute distress. HEENT--PERRL, EOMI, mucous membranes and oropharynx mildly dry Neck--supple. No JVD. No bruits. Thyroid normal, trachea midline, no adenopathy. Heart--normal S1 and S2. No murmurs, rubs or gallops. Lungs--clear bilaterally, no respiratory distress, no accessory muscle use. Abdomen--normal bowel sounds and soft. Extremities--no cyanosis or clubbing. No edema. Dermatologic--right hand cellulitis and swelling Neurologic--cranial nerves II through XII grossly intact. Rheumatologic--normal range of motion. Psychiatric--normal affect. Results & Data Results & Data Vital Signs (Past 12 Hours) Vital Signs Temp Pulse Resp BP Pulse Ox O2 Del Method 05/01/24 08:11 Room Air 05/01/24 07:38 99.7 F H 85 18 143/83 H 93 Room Air PG Care Time/CCT Total # of Minutes Spent Total Time Spent with Patient: Total time spent is greater than 50% in coordination of care (as documented) at patient's floor/unit and/or counseling patient: Coding Level of Care Code 24523 SUB INP/OBS CARE 2/35MIN Diagnoses Cellulitis of finger of right hand L03.011 Ascending lymphangitis I89.1 Leukocytosis D72.829 Influenza A J10.1 Hypokalemia E87.6 Time Spent (min) 35
[2024-05-01] MEDS: FUROSEMIDE 40 MG/4 ML VIAL IV ONE (12:12)
[2024-05-01] MEDS: VANCOMYCIN LEVEL ONE (12:13)
--- NOTE | 2024-05-01 12:49 | Pharmacy Report ---
Pharmacy PK ABX Note - Date of Service May 01, 2024 - Assessment and Plan Assessment * 53 year old F receiving ceftriaxone and vancomycin for treatment of cellulitis/ascending lymphangiitis. Finger XR showing soft tissue swelling, no gross bony destruction. No evidence of drainable abscess. No surgical plans per ortho. * SCr improved today * Blood cultures NGTD Plan Vancomycin * Target AUC/JULIETTE of 400-600 mg/L.hr * Random level obtained today associated with therapeutic AUC of 426 mg/L.hr. However, since WBC is still elevated, since improvement has been minimal and since location is on the hand, will increase dose slightly * Increase to 2000 mg IV q12h * Repeat random level will be ordered tomorrow Pharmacy will continue to follow and will adjust dose/frequency as necessary. Thank you. Pharmacy has transitioned to AUC monitoring for vancomycin. AUC/JULIETTE is the preferred PK/PD target and is associated with decreased risk of nephrotoxicity compared to traditional trough targets.
[2024-05-01] MEDS: VANCOMYCIN HCL 2,000 MG in SODIUM CHLORIDE 0.9% 500 ML IV SCH (14:23)
[2024-05-02 06:26] LABS: Basophils # (auto) 0.03 K/uL (0.00-0.20); Basophils % (auto) 0.3 %; Eosinophils # (auto) 0.02 K/uL (0.00-0.50); Eosinophils % (auto) 0.2 %; Hematocrit (blood only) 36.4 % (37.0-47.0); Hemoglobin 12.4 g/dl (12.0-16.0); Immature Granulocytes # (auto) 0.02 K/uL (0.01-0.20); Immature Granulocytes % (auto) 0.2 %; Lymphocytes # (auto) 4.28 K/uL (1.20-3.40); Mean Corpuscular Hemoglobin 29.7 pg (25.0-34.0); Mean Corpuscular Hgb Conc 34.1 g/dL (32.0-36.0); Mean Corpuscular Volume 87.1 fL (80.0-100.0); Monocytes # (auto) 0.87 K/uL (0.11-0.59); Monocytes % (auto) 7.9 %; Neutrophils # (auto) 5.75 K/uL (1.40-6.50); Neutrophils % (auto) 52.4 %; Platelet Count 275 K/uL (130-400); RDW Coefficient of Variation 12.6 % (11.5-14.5); Red Blood Count 4.18 M/uL (4.20-5.40); White Blood Count 10.97 K/ul (4.8-10.8)
[2024-05-02 06:43] LABS: BUN Creatinine Ratio 37.5 (10-20); Calcium 8.6 mg/dl (8.6-10.3); Creatinine Clr Calc Pharmacy 133.2 ml/min; Potassium 3.3 mmol/L (3.5-5.1)
--- NOTE | 2024-05-02 07:09 | Orthopedic Progress Note ---
Date of Service May 02, 2024 Assessment & Plan (1) Cellulitis of finger of right hand: Plan: 53-year-old female with right hand swelling and discomfort consistent with some cellulitis/dactylitis and presumed infection. I am still not 100% sure this is infectious and may be some type of inflammatory process. Seems to be getting slowly little bit better. Seems to be more localized to the proximal phalanx area. No obvious pus accumulation but it does seem to be a little bit more more localized to this area. Plan: I am going to try and aspirate this area that seems to be localized today to make sure there is no pus. Certainly if there is positive may need surgery. It may help to take some of the pressure off this area as well. In the meantime I think we need to keep her on the antibiotics. Continue elevation. Continue the anti-inflammatory medicines including the steroids as I think that may help her. I did aspirate this area and got no pus and just some blood. This may provide some relief pain meyer. There was nothing to culture. Continue with plan as above. Admission and Anticipated Discharge Date Admission Date: April 30, 2024 Subjective 53-year-old female admitted with right hand pain and swelling of cellulitis and dactylitis of the long finger. She has made a little bit improvements in the past 24 hours. The tip is a little bit less sore. Still fairly uncomfortable. No new complaints. Physical Exam Physical Exam: Physical nation of the right hand reveals diffuse swelling particularly the long finger. There is fusiform swelling. A little bit less swelling of the distal phalanx and leaves be a little bit more localized over the volar side of the middle phalanx. Really does not extend proximally to the finger. She is neurologically intact. Results & Data Vital Signs (Past 12 Hours) Vital Signs Temp Pulse Resp BP Pulse Ox O2 Del Method 05/01/24 23:18 36.9 C 78 16 162/94 H 96 Room Air
[2024-05-02] MEDS: POTASSIUM CHLORIDE CRTAB 20 MEQ TABCR PO STA (09:41)
[2024-05-02] MEDS: FUROSEMIDE 40 MG/4 ML VIAL IV ONE (09:42)
--- NOTE | 2024-05-02 10:39 | Hospitalist Progress Note ---
Date of Service May 02, 2024 Assessment & Plan (1) Cellulitis of finger of right hand: (2) Ascending lymphangitis: (3) Leukocytosis: (4) Influenza A: (5) Hypokalemia: Plan Patient is a 53-year-old female with a past medical history of hypothyroidism, GERD, allergies, and hyperlipidemia. She presented due to right middle finger pain, progressive erythema, and swelling x1 day. She is being admitted for IV antibiotics and to have an Ortho consult in the a.m. #cellulitis/ascending lymphangiitis/leukocytosis , with dactylitis finger XR showing soft tissue swelling, no gross bony destruction No evidence of drainable abscess, aspiration yielded only blood Continue empiric antibiotics Tylenol prn, Toradol prn, and Oxycodone 5mg (for pain not relieved by #1 and 2) Will give a dose of lasix to help with the edema No surgical plans per ortho for now #influenza A patient reported she tested positive with [facility] urgent care on Sunday Finish course of Tamiflu and prednisone 05/02 Tessalon Perles BID Isolation precautions Supportive care #hypokalemia Resolved Chronic stable diagnoses: hypothyroidism - continue levothyroxine Allergies - continue loratadine GERD - continue pantoprazole Insomnia - continue melatonin as needed HLD - continue statin VTE ppx: SCDs - low risk Diet: regular Dispo: med surg Admission and Anticipated Discharge Date Admission Date: April 30, 2024 Subjective patient seen and examined, said she is in pain after her finger was aspirated by ortho Review of Systems Review of Systems: All systems reviewed are negative, apart from the ones contained in the history. Physical Exam Physical Exam: The patient is awake, alert and oriented 3, well developed and well nourished, normocephalic and atraumatic, lying in bed and in no acute distress. HEENT--PERRL, EOMI, mucous membranes and oropharynx mildly dry Neck--supple. No JVD. No bruits. Thyroid normal, trachea midline, no adenopathy. Heart--normal S1 and S2. No murmurs, rubs or gallops. Lungs--clear bilaterally, no respiratory distress, no accessory muscle use. Abdomen--normal bowel sounds and soft. Extremities--no cyanosis or clubbing. No edema. Dermatologic--right hand cellulitis and swelling Neurologic--cranial nerves II through XII grossly intact. Rheumatologic--normal range of motion. Psychiatric--normal affect. Results & Data Results & Data Vital Signs (Past 12 Hours) Vital Signs Temp Pulse Resp BP Pulse Ox O2 Del Method 05/02/24 07:30 98.4 F 71 20 162/84 H 94 Room Air 05/01/24 23:18 98.4 F 78 16 162/94 H 96 Room Air PG Care Time/CCT Total # of Minutes Spent Total Time Spent with Patient: Total time spent is greater than 50% in coordination of care (as documented) at patient's floor/unit and/or counseling patient: Coding Level of Care Code 16306 SUB INP/OBS CARE 2/35MIN Diagnoses Cellulitis of finger of right hand L03.011 Ascending lymphangitis I89.1 Leukocytosis D72.829 Influenza A J10.1 Hypokalemia E87.6 Time Spent (min) 35
--- NOTE | 2024-05-02 14:24 | Pharmacy Report ---
Pharmacy PK ABX Note - Date of Service May 02, 2024 - Assessment and Plan Assessment 05/02/24 * Random vanc level obtained today, indicating that current vanc dose is appropriate. * BCx remain negative to date 05/01/24 * 53 year old F receiving ceftriaxone and vancomycin for treatment of cellulitis/ascending lymphangiitis. Finger XR showing soft tissue swelling, no gross bony destruction. No evidence of drainable abscess. No surgical plans per ortho. * SCr improved today * Blood cultures NGTD * Random level obtained today associated with therapeutic AUC of 426 mg/L.hr. However, since WBC is still elevated, since improvement has been minimal and since location is on the hand, will increase dose slightly Plan Vancomycin * Target AUC/JULIETTE of 400-600 mg/L.hr * Continue vanc 2000 mg IV q12h * No further levels have been ordered at this time. If pt remains on vanc, will consider the need for additional monitoring in 1-2 days. Pharmacy will continue to follow and will adjust dose/frequency as necessary. Thank you. Pharmacy has transitioned to AUC monitoring for vancomycin. AUC/JULIETTE is the preferred PK/PD target and is associated with decreased risk of nephrotoxicity compared to traditional trough targets.
[2024-05-03 06:59] LABS: Hematocrit (blood only) 36.9 % (37.0-47.0); Hemoglobin 12.6 g/dl (12.0-16.0); Mean Corpuscular Hemoglobin 29.7 pg (25.0-34.0); Mean Corpuscular Hgb Conc 34.1 g/dL (32.0-36.0); Platelet Count 305 K/uL (130-400); RDW Coefficient of Variation 12.4 % (11.5-14.5); RDW Standard Deviation 39.8 fL (36.4-46.3); Red Blood Count 4.24 M/uL (4.20-5.40); White Blood Count 11.79 K/ul (4.8-10.8)
--- NOTE | 2024-05-03 07:12 | Hospitalist Progress Note ---
Date of Service May 03, 2024 Assessment & Plan (1) Cellulitis of finger of right hand: (2) Ascending lymphangitis: (3) Leukocytosis: (4) Influenza A: (5) Hypokalemia: Plan Patient is a 53-year-old female with a past medical history of hypothyroidism, GERD, allergies, and hyperlipidemia. She presented due to right middle finger pain, progressive erythema, and swelling x1 day. #Cellulitis with dactylitis: -Symptom for 4 days now. -Improving, Total count downtrending -No h/o trauma, no bite -XR: oft tissue swelling, no gross bony destruction -No evidence of drainable abscess -Ortho on board; appreciate recs Tried aspiration; only blood Continue IV antibiotics No surgical plans per ortho for now - MRSA nares pending *Encouraged Protein diet, ambulation Hand movement and elevation Ice compression for better healing #Influenza A -Positive on Sunday, no active s/s -SpO2 at RA. -Finished course of Tamiflu and prednisone -Tessalon Perles BID/ Supportive care #Hypokalemia Resolved #Diarrhoea - Frequent loose stool. - No fever, no dehydration, nausea. - Does not feel infective. - Likely 2/2 Abx and Tamiflu. - Will monitor. - Encourage Hydration #High Blood pressure: -Undiagnosed before -Asymptomatic -2/2 hospital admission. -Will treat if SBP > 200 -Would rec home BP monitor and PCP f/u in [place] Chronic stable diagnoses: hypothyroidism - continue levothyroxine Allergies - continue loratadine GERD - continue pantoprazole Insomnia - continue melatonin as needed HLD - continue statin VTE ppx: SCDs - low risk Diet: regular, encourage protein Dispo: Will DC home when she's ready. Challenging home situation bc everyone is sick, want to return early if possible Admission and Anticipated Discharge Date Admission Date: April 30, 2024 Supervising Physician Co-Signing Physician Notes I personally examined the patient and verified all jay points of history and exam, discussed case, and agree with decision making with Dr Phill berry slowly feeling better. bump on side of R arm. notes that when she came in R forearm was also red and painful vitals noted nad R 3rd digit swollen mild appearing to be resolving erythema mod tender no significant fluctuance, flexor surface with areas that appear like small amounts of clotted blood under the skin. small mobile node R lateral forearm finger cellulitis, and what sounds to have been lymphangitis, present on admission - improving. on vancomycin and ceftriaxone. highly doubt gram negative. without overt abscess. no severe sepsis/septic shock on admission (technically did meet SIRS criteria w WBC and HR so was septic on admission, but fortunately not severe) - overall doubt needs both vanco and ceftriaxone. MRSA nares - if positive, drop ceftriaxone and keep vanco, if negative, drop vanco and narrow cephalosporin to cefazolin to cover MSSA/strep. appreciate ortho input. otherwise as above Subjective 53 year Miss Mirza, very pleasant, seen on bedside today. Overall doing great, no new complains. Little frustrated because she needs prolonged admission. However agrees she need to stay long for IV antibiotics. No fever, rash, new pain, new swelling, CP, SOB, Burning urine. Able to walk around, able to eat normally. Review of Systems Review of Systems: As per HPI Physical Exam Physical Exam: Constitutional: Well appearing, No acute distress HEENT: Atraumatic, Normocephalic, No conjunctival injection CVS:Looks well perfused Respiratory: No increased work of breathing GI: Soft, Nondistended MSK/ Skin: Diffusely swollen right 3rd finger, looks well perfused, Erythema limited to 3rd digit only, No bluish discoloration. Feels warm and tender, Painful ROM but able to move. Neuro: Alert, Oriented to TPP, No Focal deficit Psych: Mood and Affect congruent, Cooperative on exam Results & Data Results & Data Vital Signs (Past 12 Hours) Vital Signs Temp Pulse Resp BP Pulse Ox O2 Del Method 05/03/24 07:07 36.9 C 72 18 173/99 H 94 Room Air 05/03/24 02:08 169/95 H 05/03/24 00:05 Room Air 05/02/24 23:30 36.8 C 84 14 174/125 H 99 Room Air 05/02/24 20:46 36.7 C 79 18 161/93 H 93 Room Air 05/02/24 20:15 Room Air Resident Activity Tracking Resident Involvement: Resident Care Provided Care Provided: Adult Hospital Medicine
[2024-05-03 07:20] LABS: BUN Creatinine Ratio 38.6 (10-20); Calcium 8.9 mg/dl (8.6-10.3); Creatinine Clr Calc Pharmacy 149.5 ml/min; Potassium 3.6 mmol/L (3.5-5.1)
--- NOTE | 2024-05-03 07:23 | Orthopedic Progress Note ---
Date of Service May 03, 2024 Assessment & Plan (1) Cellulitis of finger of right hand: Plan: 53-year-old female admitted with right hand cellulitis/dactylitis. Made significant progress over the past 24 hours. No surgical indication at this time. Continue IV antibiotics. I suspect she will need probably 2-3 more days of this and then hopeful discharge to home. Will continue to follow her daily. Admission and Anticipated Discharge Date Admission Date: April 30, 2024 Subjective 53-year-old female admitted with hand cellulitis. She had made significant improvements over the past 24 hours. Still pretty sore but improved. Physical Exam Physical Exam: Physical examination was a pleasant middle-age female. Her examination of the hand reveals the third finger to be still markedly swollen but significantly improved. The cellulitis more proximally and the swelling proximally is improved. No obvious abscess collections. Results & Data Vital Signs (Past 12 Hours) Vital Signs Temp Pulse Resp BP Pulse Ox O2 Del Method 05/03/24 07:07 36.9 C 72 18 173/99 H 94 Room Air 05/03/24 02:08 169/95 H 05/03/24 00:05 Room Air 05/02/24 23:30 36.8 C 84 14 174/125 H 99 Room Air 05/02/24 20:46 36.7 C 79 18 161/93 H 93 Room Air 05/02/24 20:15 Room Air
--- NOTE | 2024-05-03 10:45 | Billing Data ---
Date of Service May 03, 2024 Coding Level of Care Code 70412 SUB INP/OBS CARE MIN
[2024-05-03] MEDS: ceFAZolin 2000MG 2,000 MG/15 ML SYR IV SCH (17:55)
[2024-05-04 06:04] LABS: Basophils # (auto) 0.09 K/uL (0.00-0.20); Basophils % (auto) 0.9 %; Hematocrit (blood only) 36.9 % (37.0-47.0); Hemoglobin 12.6 g/dl (12.0-16.0); Immature Granulocytes # (auto) 0.05 K/uL (0.01-0.20); Immature Granulocytes % (auto) 0.5 %; Lymphocytes # (auto) 4.06 K/uL (1.20-3.40); Lymphocytes % (auto) 39.8 %; Mean Corpuscular Hemoglobin 30.1 pg (25.0-34.0); Mean Corpuscular Hgb Conc 34.1 g/dL (32.0-36.0); Mean Corpuscular Volume 88.1 fL (80.0-100.0); Monocytes # (auto) 0.91 K/uL (0.11-0.59); Monocytes % (auto) 8.9 %; Neutrophils % (auto) 47.9 %; Platelet Count 322 K/uL (130-400); RDW Coefficient of Variation 12.5 % (11.5-14.5); RDW Standard Deviation 40.2 fL (36.4-46.3); Red Blood Count 4.19 M/uL (4.20-5.40); White Blood Count 10.21 K/ul (4.8-10.8)
[2024-05-04 06:10] LABS: Creatinine Clr Calc Pharmacy 127.2 ml/min
--- NOTE | 2024-05-04 07:28 | Hospitalist Progress Note ---
Date of Service May 04, 2024 Assessment & Plan (1) Cellulitis of finger of right hand: (2) Ascending lymphangitis: (3) Leukocytosis: (4) Influenza A: (5) Hypokalemia: Plan Patient is a 53-year-old female with a past medical history of hypothyroidism, GERD, allergies, and hyperlipidemia. She presented due to right middle finger pain, progressive erythema, and swelling x1 day. #Cellulitis with dactylitis: -Symptom for 5 days now. -Improving, Total count downtrending -No h/o trauma, no bite -XR: Soft tissue swelling, no gross bony destruction -No evidence of drainable abscess -Ortho on board; appreciate recs Tried aspiration; only blood Continue IV antibiotics; recs MRSA coverage, added Bactrim per rec No surgical plans per ortho for now - MRSA nares: Negative *Encouraged Protein diet, ambulation Hand movement and elevation Ice compression for better healing #Influenza A -Positive on Sunday, no active s/s -SpO2 at RA. -Finished course of Tamiflu and prednisone -Tessalon Perles BID/ Supportive care #Hypokalemia Resolved #Diarrhoea *Probiotics added today - Frequent loose stool. - No fever, no dehydration, nausea. - Does not feel infective. - Likely 2/2 Abx and Tamiflu. - Will monitor. Encourage Hydration #High Blood pressure: -Undiagnosed before -Asymptomatic -2/2 hospital admission/ stress/ pain/ acute pathology -Will treat if SBP > 200 -Would rec home BP monitor and PCP f/u in [place] Chronic stable diagnoses: hypothyroidism - continue levothyroxine Allergies - continue loratadine GERD - continue pantoprazole Insomnia - continue melatonin as needed HLD - continue statin VTE ppx: SCDs - low risk Diet: regular, encourage protein Dispo: Will DC home when she's ready. Admission and Anticipated Discharge Date Admission Date: April 30, 2024 Supervising Physician Co-Signing Physician Notes I personally examined the patient and verified all jay points of history and exam, discussed case, and agree with decision making with Dr Pollock finger continues to feel better, bump on arm going down. vitals noted nad R 3rd digit swollen, resolving erythema mod tender no significant fluctuance, overall improving. small mobile node R lateral forearm has gone down to where i can't reliably find it without patient being able to point out where it is first - then faintly noticable far less defined, shrinking compared to yesterday finger cellulitis, and what sounds to have been lymphangitis, present on admission - improving. on vancomycin and ceftriaxone. highly doubt gram negative. without overt abscess. no severe sepsis/septic shock on admission (technically did meet SIRS criteria w WBC and HR so was septic on admission, but fortunately not severe) - MRSA nares negative. getting better now on cefazolin, although ortho raises concern about continuing MRSA coverage - since "at risk" anatomically will add bactrim at their direction. anticipate home soon. Subjective 53 year Miss Mirza, very pleasant, seen on bedside today. Overall doing great, had frequent bowel movement with loose stool yesterday. No fever, rash, new pain, new swelling, CP, SOB, Burning urine. Able to walk around, able to eat normally. She is hopeful that she will be discharged by Sunday. Review of Systems Review of Systems: As per HPI Physical Exam Physical Exam: Constitutional: Well appearing, No acute distress HEENT: Atraumatic, Normocephalic, No conjunctival injection CVS:Looks well perfused Respiratory: No increased work of breathing GI: Soft, Nondistended MSK/ Skin: Diffusely swollen right 3rd finger, looks well perfused, Swelling consistent but Erythema decreasing, No bluish discoloration. Feels warm and tender, Painful ROM but able to move. Neuro: Alert, Oriented to TPP, No Focal deficit Psych: Mood and Affect congruent, Cooperative on exam Results & Data Results & Data Vital Signs (Past 12 Hours) Vital Signs Temp Pulse Resp BP Pulse Ox O2 Del Method 05/03/24 20:30 Room Air 05/03/24 19:46 36.9 C 84 16 169/96 H 98 Room Air Resident Activity Tracking Resident Involvement: Resident Care Provided Care Provided: Adult Hospital Medicine
--- NOTE | 2024-05-04 07:49 | Orthopedic Progress Note ---
Date of Service May 04, 2024 Assessment & Plan (1) Cellulitis of finger of right hand: Plan: 53-year-old female with with right hand cellulitis and dactylitis significantly improving. No obvious abscess collection. There is no signs of flexor tenosynovitis. Does seem to be localizing to the soft tissues of the middle phalanx area. Plan: We did attempt to aspirate this and got no pus. As she is improving. I suspect that we can keep her on the IV antibiotics for another day including today and then likely discharge tomorrow on oral antibiotics. Will likely need to cover her for MRSA regardless. Likely antibiotics would be Keflex and Bactrim combined for 2 weeks. (2) Finger infection: Admission and Anticipated Discharge Date Admission Date: April 30, 2024 Subjective 53-year-old female admitted with a hand cellulitis and dactylitis of the long finger. She is gradually made significant improvements over the past 2 days. Her long finger still pretty swollen but the rest of her hand looks pretty benign. Still a bit stiff. No obvious abscess collections. Physical Exam Physical Exam: Physical examination of the hand reveals the cellulitis and swelling of the hand markedly improved. She still has diffuse swelling and redness of the long finger. Limited motion. No obvious pus or abscesses. She is neurologically intact. Results & Data Vital Signs (Past 12 Hours) Vital Signs Temp Pulse Resp BP Pulse Ox O2 Del Method 05/03/24 20:30 Room Air 05/03/24 19:46 36.9 C 84 16 169/96 H 98 Room Air Laboratory Results White blood cell count 10.21. Electrolytes are stable.
[2024-05-04] MEDS: ADVANCED PROBIOTIC 625 MG CAPSULE PO SCH (08:22)
--- NOTE | 2024-05-04 10:29 | Billing Data ---
Date of Service May 04, 2024 Coding Level of Care Code 71998 SUB INP/OBS CARE MIN
[2024-05-04] MEDS: SULFAMETHOXAZOLE/TRIMETHOPRIM DS 800/160MG TAB PO SCH (20:05)
[2024-05-05 06:05] LABS: Basophils # (auto) 0.09 K/uL (0.00-0.20); Basophils % (auto) 0.8 %; Eosinophils # (auto) 0.36 K/uL (0.00-0.50); Eosinophils % (auto) 3.4 %; Hematocrit (blood only) 37.4 % (37.0-47.0); Hemoglobin 12.5 g/dl (12.0-16.0); Immature Granulocytes # (auto) 0.09 K/uL (0.01-0.20); Immature Granulocytes % (auto) 0.8 %; Lymphocytes # (auto) 3.95 K/uL (1.20-3.40); Lymphocytes % (auto) 36.9 %; Mean Corpuscular Hemoglobin 29.6 pg (25.0-34.0); Mean Corpuscular Hgb Conc 33.4 g/dL (32.0-36.0); Mean Corpuscular Volume 88.4 fL (80.0-100.0); Mean Platelet Volume 9.8 fL (9.4-12.4); Monocytes # (auto) 1.14 K/uL (0.11-0.59); Monocytes % (auto) 10.7 %; Neutrophils # (auto) 5.07 K/uL (1.40-6.50); Neutrophils % (auto) 47.4 %; Platelet Count 334 K/uL (130-400); RDW Coefficient of Variation 12.4 % (11.5-14.5); RDW Standard Deviation 40.1 fL (36.4-46.3); Red Blood Count 4.23 M/uL (4.20-5.40)
[2024-05-05 06:27] LABS: Creatinine Clr Calc Pharmacy 127.2 ml/min
--- NOTE | 2024-05-05 07:03 | Orthopedic Progress Note ---
Date of Service May 05, 2024 Assessment & Plan (1) Cellulitis of finger of right hand: Plan: 53-year-old female admitted with right arm/hand cellulitis. She is significantly improved from admission. Looking at her finger today I think would be okay to switch her to oral antibiotics. Without a organism I think we need to cover for MRSA. Clara recommend Keflex 5 mg 4 times a day and Bactrim twice a day for 2 weeks. She should follow-up in my clinic in 2 weeks. I did tell her I think it is okay for her to work. 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 Admission and Anticipated Discharge Date Admission Date: April 30, 2024 Subjective 53-year-old female admitted with right hand cellulitis. She continues making significant improvements. Additionally, localized to the middle phalanx area of the long finger. She has better movement of the finger. Is much less painful. No real cellulitis extending up the arm. She is hoping to go home. Physical Exam Physical Exam: Physical nation of the right hand reveals some moderate diffuse swelling of the long finger. A little bit of redness as well right over the middle phalanx area. No obvious pus accumulations. Distally the pulp is soft no signs of a felon. No signs of flexor tenosynovitis. Results & Data Vital Signs (Past 12 Hours) Vital Signs Temp Pulse Resp BP Pulse Ox O2 Del Method 05/04/24 20:25 Room Air 05/04/24 19:47 37.5 C 90 16 165/103 H 93 Room Air
[2024-05-05 07:15] VITALS: BP 162/111; PULSE 89; RESP 17; TEMP 98.8; O2SAT 95
[2024-05-05] MEDS ORDERED: KETOROLAC TROMETHAMINE 15 MG/ML VIAL IV PRN (07:40)
--- NOTE | 2024-05-05 08:06 | Discharge Summary ---
Date of Service May 05, 2024 Admission HPI Per Admitting Provider Patient is a 53-year-old female with a past medical history of hypothyroidism, GERD, allergies, and hyperlipidemia. She presented due to right middle finger pain. She is being admitted for IV antibiotics and to have an Ortho consult in the a.m. Patient seen at bedside. She is tearful due to pain. She stated that she woke up this morning and had discomfort but not pain of the tip of her right middle finger. She then tried to ignore it and go about her day as she was taking care of her sick mother. As the day went on the swelling progressed down her finger, into her knuckle, and now has redness and warmth extending to her dorsal hand. At home she took all of her rings off, took 2 ibuprofen, applied ice, elevated her hand. None of these things seem to help. At 930 she came in due to concern of persistent swelling and progressive pain. She stated she has no history of MRSA. She has never had symptoms like this before. She currently describes her pain as hot and throbbing. She denies any trauma to her finger. There is no open wound. Patient does endorse fevers however recent diagnoses of flu on Sunday. She stated she felt sick over the weekend and went to [facility] urgent care and [facility] and on Sunday. Here they diagnosed her with influenza and she started Tamiflu twice daily x 5 days, prednisone 40 twice daily x 5 days, and Tessalon Perle twice daily. She said she had fevers as high as 100.8, feels afebrile today. Her symptoms of the flu have improved but previously consisted of ear pain, throat pain, headache, jaw pain. She also endorses decrease oral intake and more frequent bowel movements, however denies diarrhea. Patient denies fever, chills, headache, dizziness, lightheadedness, dyspnea,chest pain, abdominal pain, nausea, vomiting, diarrhea. She does not use nicotine products or drink alcohol. She denies past history of CAD, DM. she does not use oxygen at baseline. She took her home medications this morning. She wishes to be full code at this time. Admission Exam Per Admitting Provider Physical Exam: The patient is awake, alert and oriented 3, well developed and well nourished, normocephalic and atraumatic, in no acute distress. Non-toxic appearing. HEENT- EOMI, mucous membranes moist. Hearing grossly intact. Heart-normal S1 and S2. No murmurs, rubs or gallops. Lungs-clear bilaterally, no respiratory distress, no accessory muscle use. Abdomen-normal bowel sounds and soft. No ascites noted. Non-tender. Rheumatologic-normal range of motion. Psychiatric-tearful affect. Skin: Right middle phalange with significant erythema and swelling of DIP, PIP, and MCP. Erythema spreading up dorsal aspect of hand and into wrist. Principal Diagnosis Cellulitis Discharge Exam Gen: well appearing patient in NAD HEENT: AT NC MMM Resp: CTAB no wheezing, scatter rhonchi, no increased work of breathing CV: RRR no m/r/g clinically well perfused Abd: non-distended MSK: swelling and erythema of the third digit on the right hand, TTP area of the PIP, no fluctuance or drainage, no warmth Skin: no rashes or bruising Neuro: alert and oriented Psych: appropriate mood and affect Discharge Data Allergies Allergy/AdvReac Type Severity Reaction Status Date / Time morphine Allergy Severe HEART RACES Verified 06/06/22 13:05 Penicillins Allergy Severe "PUFFY Verified 06/06/22 13:05 EYES" tree and shrub pollen AdvReac Rash Verified 06/06/22 13:05 Consultations 04/30/24 00:16 Consult Orthopedic Surgery Routine Finger X-Ray 04/29/24 23:15 FINDINGS: Bones/joints: No acute fracture. No dislocation. No gross bony destruction is seen. Soft tissues: There is soft tissue swelling.. No radiopaque foreign body. IMPRESSION: Soft tissue swelling.If further evaluation is clinically necessary, consider correlation with MRI. Hospital Course (1) Cellulitis of finger of right hand: Ms. Mirza is a 53 y/o with a PMHx of hypothyroidism, GERD, HLD, and general allergies who presented with swelling, pain, and redness of the right middle finger. Admitted to r/o osteomyelitis vs tenosynovitis vs ascending lymphangitis. Now stable for discharge home with routine care. #Cellulitis with dactylitis: Orthopedics consulted. No signs of osteo on XR. Unable to aspirate any purulent fluid. Conservative management with abx recommended, including MRSA coverage. Transitioned to oral abx 2/3 with Bactrim DS BID and Keflex 500 mg QID. Significantly improved, stable for d/c home. She will need 14 days of abx and a f/u with ortho in 2 weeks. Continue with ice, compression, elevation for help with swelling. Recommend keeping active to help with healing. Patient given work note at time of discharge. (2) Influenza A: Tested positive 04/27. Completed course of Tamiflu and prednisone 05/02. Saturating well on room air. Droplet precautions on during hospital stay. Continue supportive care. (3) Hypokalemia: Electrolytes monitored and repleted during hospital stay. (4) Elevated blood pressure reading without diagnosis of hypertension: May be related to hospital stay/cellulitis/pain. Would recommend outpatient monitoring and close f/u with PCP (5) Diarrhea: Likely in the setting of antiviral/antibiotic use. Can add gut support - probiotics, Kombucha, kimchi, yogurt. Encourage PO. (6) Ascending lymphangitis: (7) Leukocytosis: Plan Chronic: Hypothyroidism - continue levothyroxine Allergies - continue loratadine GERD - continue pantoprazole Insomnia - continue melatonin as needed HLD - continue statin Total Time Total Time Spent Total Time Spent (In Minutes): I spent 25 mins today seeing the patient, reviewing her chart, and documenting. Discharge Plan Discharge Items Patient Disposition: Home - Self-Care Reason For Visit: TENOSYNOVITIS, LYMPHAGINITIS Discharge Diagnosis: cellulitis Activity: Per Instructions section Non-emergency contact: Primary Care Provider and Specialist Call non-emergency contact if: your rectal temperature is above 100.4 Follow-up/Referrals: Han Brody MD [Physician] - 05/19/24 11:40 am (Orthopedic follow-up in 10- 14 days) Kristina Troy PA-C [Primary Care Provider] - 05/09/24 9:45 am Diet: Regular Addtl Attending Provider Instructions: You were seen here in the hospital for hand pain and swelling. You were diagnosed with cellulitis and treated with IV antibiotics. You were seen by our orthopedics team with Dr. Brody and should follow up in his office in about 2 weeks. We will have you on oral antibiotics until you see him outpatient. You wi ll take Bactrim every 12 hours and Keflex 500 mg every 6 hours. For gut health you can consume things like yogurt, Kombucha, kimchi and/or take a probiotic containing lactobacillus. Take this about 2 hours before or after a dose of antibiotics. Your blood pressure was a little high while you were here in the hospital. Please check your blood pressure at home for the next few days - sit with your feet flat on the floor for about 5 minutes then take your BP using your home cuff. Please follow up with your PCP in the next 7-14 days to discuss this further and bring your cuff/readings to that appointment as well. If you develop a fever or your pain worsens you will need to be seen either in your primary care office or here at the hospital. Thank you for allowing us to participate in your care Pending Studies at Discharge: No Stand-Alone Forms: My [facility] [employer], Work/School Release, Smoking Cessation Medications and DC Order Prescriptions: New sulfamethoxazole-trimethoprim [Bactrim DS] 800-160 mg Tablet 1 tab PO Q12 14 Days Qty: 28 0RF cephalexin 500 mg Capsule 500 mg PO QID 14 Days Qty: 56 0RF Continued levothyroxine 25 mcg capsule 25 mcg PO QAM loratadine 10 mg capsule 10 mg PO QAM pseudoephedrine-guaifenesin [Mucinex D Maximum Strength] 120-1,200 mg tablet extended release 12 hr 1 tab PO Q12H PRN (Reason: allergies) pantoprazole 40 mg tablet,delayed release (DR/EC) 40 mg PO QAM rosuvastatin 5 mg tablet 5 mg PO QAM ascorbic acid (vitamin C) 500 mg capsule 500 mg PO QAM cholecalciferol (vitamin D3) 125 mcg (5,000 unit) capsule 125 mcg PO QAM coenzyme Q10 [Co Q-10] 10 mg Capsule 10 mg PO QAM promethazine-DM 6.25-15 mg/5 mL syrup 5 ml PO UD PRN (Reason: Cough) benzonatate 100 mg capsule 100 mg PO TID Discontinued prednisone 20 mg tablet 40 mg PO DAILY Rx Instructions: X 5 DAYS ORDERED 04/27/24 oseltamivir 75 mg capsule 75 mg PO BID Rx Instructions: TAKE FOR 5 DAYS ORDERED 04/27/24 Discharge Orders: Discharge Order (Routine); Ordered 05/05/24 Ordered By: Verito Gallagher Admission Data Admit Date/Time: 04/30/24 01:01 Attending Provider: Estuardo Torres Admit Provider: Holden Warner Primary Care Provider: Kristina Troy Other Providers: Han Brody Other Interventions: Discharge Summary Assessment (RN) Last Done: 05/05/24 10:06 Supervising Physician Co-Signing Physician Notes I also saw the patient and confirmed jay portions of the clinical history physical examination. Clinically, the patient appears well; she is afebrile. She demonstrates to me improved range of motion of the affected finger. She notes decreased swelling, pain, and erythema compared to admission. She is aware of the need to continue antibiotics as prescribed. She will have follow- up with orthopedics as an outpatient. Reviewed the signs and symptoms for which to monitor, including those which would necessitate return to the hospital. I agree with the impression and plan as noted in the resident discharge summary above. Resident Activity Tracking Resident Involvement: Resident Care Provided Care Provided: Adult Hospital Medicine
[2024-05-05 08:08] LABS: BUN Creatinine Ratio 23.9 (10-20); Calcium 9.4 mg/dl (8.6-10.3); Potassium 4.2 mmol/L (3.5-5.1)
[2024-05-05] MEDS: cephALEXin 500 MG CAP PO SCH (08:13)
== END 2024-05-05 10:45 | disposition home or self-care (01) ==
LOC: ED 22:18 → SUATTDRO 04-30 01:01 → EDINP 04-30 01:01 → INTOOBSV 04-30 01:01 → 2W 04-30 02:39 → 3E 05-02 23:24